=== PATIENT | male | born 1950 | race Caucasian/White ===

== ENCOUNTER 2019-05-02 12:28 | Observation (INO) | payer OTHER ==
[~2019-05-02] VITALS: Ht 170.2 cm; Wt 99.8 kg
[2019-05-02] MEDS ORDERED: ONDANSETRON HCL INJ 2MG/ML 2ML 2 MG/ML VIAL IV PRN (12:45)
[2019-05-02] MEDS ORDERED: SODIUM CHLORIDE FLUSH 10 ML SYR INJ PRN (12:45)
[2019-05-02 13:52] LABS: BASOPHILS # (AUTO) 0.2 (0.0-0.1); BASOPHILS % 1.5 % (0.0-1.0); EOSINOPHILS # (AUTO) 0.7 (0.0-0.4); EOSINOPHILS % 7.5 % (0.0-6.0); HEMATOCRIT 41.4 % (38.2-49.6); HEMOGLOBIN 13.6 g/dL (14.0-18.0); LYMPHOCYTES # (AUTO) 1.8 (1.0-3.2); LYMPHOCYTES % 18.3 % (18.0-39.1); MEAN CORPUSCULAR HEMOGLOBIN 28.3 pg (28-32); MEAN CORPUSCULAR HGB CONC 32.9 g/dL (31-35); MEAN CORPUSCULAR VOLUME 86.1 fL (81-99); MONOCYTES # (AUTO) 0.9 (0.2-0.8); MONOCYTES % 9.2 % (4.4-11.3); NEUTROPHILS # (AUTO) 6.1 (2.1-6.9); PLATELET COUNT 314 x10e3/uL (140-360); RED BLOOD COUNT 4.81 x10e6/uL (4.3-5.7); RED CELL DISTRIBUTION WIDTH 14.1 % (11.7-14.4)
[2019-05-02 14:08] LABS: ALBUMIN 3.3 g/dL (3.5-5.0); ALBUMIN/GLOBULIN RATIO 0.7 (0.8-2.0); ANION GAP 13.3 mmol/L (8-16); CALCIUM 9.9 mg/dL (8.4-10.2); CREATININE, SERUM 1.3 mg/dL (0.72-1.25); POTASSIUM 4.3 mmol/L (3.5-5.1)
[2019-05-02 14:28] LABS: CLARITY,URINE CLOUDY (CLEAR); COLOR,URINE YELLOW (YELLOW); LEUKOCYTE ESTERASE ,URINE LARGE (NEGATIVE); PROTEIN,URINE DIPSTICK 1+ (NEGATIVE)
[2019-05-02 14:29] LABS: BILIRUBIN,URINE NEGATIVE (NEGATIVE); KETONES,URINE NEGATIVE (NEGATIVE); NITRITE,URINE NEGATIVE (NEGATIVE); URINE UROBILINOGEN 0.2 mg/dL (0.2 - 1)
[2019-05-02] MEDS: PIPER-TAZ 3.375 GM 50 ML IV SCH ×2 (14:30→22:00)
--- NOTE | 2019-05-02 14:35 | NUR ---
OBTAINED SIGNATURE FOR INFORMED CONSENT FOR PICC LINE PLACEMENT, SIGNED WITNESS DR. CAMPBELL PREVIOUSLY EXPLAINED RISKS, BENEFITS, AND ALTERNATIVE TREATMENTS IN HIS OFFICE PRIOR TO SENDING PT TO ED FOR OBS ADMISSION; PT VERBALIZES UNDERSTANDING OF PLAN OF CARE, COMPLETED FORM PLACED ON CHART; NO NEEDS VOICED AT THIS TIME, BED LOW/LOCKED, SIDE RAILS UP, CALL LIGHT IN EASY REACH.
[2019-05-02] MEDS ORDERED: SIMVASTATIN40 MG PO (14:36)
[2019-05-02] MEDS ORDERED: VENTOLIN HFA18 GM PO (14:36)
[2019-05-02] MEDS ORDERED: QUETIAPINE FUM100 MG PO (14:36)
[2019-05-02] MEDS ORDERED: TRAZODONE HCL100 MG PO (14:36)
[2019-05-02] MEDS ORDERED: FLUTICASONE PRO16 GM (14:36)
[2019-05-02] MEDS ORDERED: ANORO PO (14:36)
[2019-05-02] MEDS ORDERED: DICLOFENAC SODI50 MG PO (14:36)
--- NOTE | 2019-05-02 14:40 | NUR ---
CALLED RADIOLOGY TO CALL OUT PICC TEAM, INFORMED THAT ETA IS NOT AVAILABLE DUE TO INCLEMENT WEATHER AND LOCAL FLOODING, BUT PICC TEAM IS TO COME OUT TODAY.
[2019-05-02 14:43] LABS: BACTERIA,URINE MODERATE /HPF; WBC,URINE (MAN) 21-50 /HPF (0-5)
--- NOTE | 2019-05-02 15:30 | NUR ---
Recvd patient from ER. AAOx3, Denies any pain not in any distress, resp even and unlabored, call light in reach.
--- NOTE | 2019-05-02 16:44 | NUR ---
SIGNED CHOICE FOR [facility] FOR HOME IV ABX. FILED IN CHART AND WILL GET CLINICALS TOGETHER SOON H AND P IS AVAILABLE TO GET TO REP.
[2019-05-02 17:23] VITALS: BP 145/72
--- NOTE | 2019-05-02 18:42 | NUR ---
Received report from previous nurse. Patient in bed. Call light within reach. Patient in no pain or distress. at bedside
[2019-05-02 20:00] VITALS: BP 130/66
--- NOTE | 2019-05-02 21:23 | Diagnostic Imaging Report ---
Examination: Single AP view of the chest. COMPARISON: None. INDICATION: PICC line placement IMPRESSION: 1. Lines and Tubes: Right-sided PICC line has its distal tip projecting in the mid SVC. 2. Lungs are well inflated. Ill-defined focal convexity in the medial aspect of the right upper lobe. This may reflect adenopathy or pulmonary mass.. Rest of the lungs is clear. No consolidation or effusion. Recommend contrast-enhanced chest CT. 3. Cardiomediastinal silhouette is normal. Pulmonary vasculature is normal. 4. No acute bony abnormalities. Signed by: Dr. Topher Garner M.D. on 05/02/2019 9:19 PM
[2019-05-02] MEDS ORDERED: SODIUM CHLORIDE 0.9% 250ML 250 ML ONE (21:45)
[2019-05-02] MEDS: QUETIAPINE FUMARATE 100 MG TAB PO SCH (22:45)
[2019-05-02] MEDS ORDERED: TRAZODONE HCL 50 MG TAB PO SCH (22:45)
[2019-05-03] VITALS (7 sets, daily range): BP systolic 114–137; BP diastolic 58–83
[2019-05-03] MEDS: PIPER-TAZ 3.375 GM 50 ML IV SCH ×2 (06:00→14:00)
--- NOTE | 2019-05-03 07:37 | NUR ---
Gave report to oncoming nurse. Call light within reach. at bedside. patient in no pain or distress.
[2019-05-03] MEDS: QUETIAPINE FUMARATE 100 MG TAB PO SCH (09:00)
[2019-05-03] MEDS ORDERED: MAGNESIUM OXIDE 400 MG TAB PO SCH (09:00)
--- NOTE | 2019-05-03 14:55 | NUR ---
CLINICALS FAXED TO [facility] AT [phone] CONFIRMATION REC'D NEISHA WITH [facility] CONFIRMED PT IN NETWORK AND COVERED AT 100% AWAIT LAUREN WITH [facility] TO COME DO TEACH PRIOR TO DISCHARGE
--- NOTE | 2019-05-04 06:47 | Discharge Summary ---
PROCESS STEWARD: Shade Aragon MD. FINAL DIAGNOSES: 1. Multi-drug resistant urinary tract infection, complicated urinary tract infection, failed outpatient treatment. 2. Incidental finding of a vague spot on the lung, upper lobe area. Need further evaluation. SUMMARY: A 68-year-old male was placed on observation for antibiotic arrangement for multi-drug resistant urinary tract infection, failed outpatient treatment. The patient is otherwise stable. Lab work otherwise unremarkable. A PICC line of the right upper extremity was placed. Chest x-ray postprocedure found to have a small area of opacity, unclear, but need further evaluation. Discussed with the patient and spouse at bedside regarding followup on the abnormal chest x-ray. The patient does have a pharmacology professor for a sleep study. We will give the patient a chest x-ray results and ask the patient to follow up with his pharmacology professor for possible outpatient workup with a CT scan of the chest. The patient was an ex-smoker, quit 15 years ago. This vague finding need to follow up closely. The patient will be discharge home today with IV Zosyn has been arranged for home use. The patient is otherwise stable. The patient will be discharged. Follow up with his family doctor and pharmacology professor and Dr. Shade Aragon as an outpatient. The patient will resume his home medication on discharge. MD MADHAV Shiedls/MODL /[id number]
== END 2019-05-03 16:08 | disposition home or self-care (01) ==
LOC: ER 12:28 → ERHOLD 12:35 → IMCU 15:56
PROVIDERS: ADMIT Internal Medicine; ATTEND Internal Medicine
DX: N39.0 Urinary tract infection, site not specified (principal); N40.0 Benign prostatic hyperplasia without lower urinary tract symptoms; G47.00 Insomnia, unspecified; Z87.891 Personal history of nicotine dependence; Z16.24 Resistance to multiple antibiotics; R31.29 Other microscopic hematuria; N18.9 Chronic kidney disease, unspecified; R91.8 Other nonspecific abnormal finding of lung field
CPT/HCPCS: 36415; 36569; 71045; 80053; 81001; 85025; 87086; 99284; G0378 ×2; J2543 ×2; J7050; 87186; J2405